=== PATIENT | male | born 1965 | race Two or more races ===

== ENCOUNTER 2018-06-04 13:26 | Outpatient (CLI) | payer OTHER | END 2018-06-04 15:39 | disposition home or self-care (01) | LOC: RAD 13:26 | DX: M25.511 Pain in right shoulder (principal); M25.531 Pain in right wrist ==

== ENCOUNTER 2018-12-10 10:42 | Outpatient (CLI) | payer OTHER | END 2018-12-10 10:49 | disposition home or self-care (01) | LOC: RAD 10:42 | DX: M25.562 Pain in left knee (principal); M25.552 Pain in left hip ==

== ENCOUNTER → 2018-12-30 | Outpatient (CLI) | payer OTHER | END | disposition home or self-care (01) | LOC: TOM 15:35 | DX: M54.42 Lumbago with sciatica, left side (principal) ==

== ENCOUNTER 2023-05-10 10:16 | Outpatient (CLI) | payer OTHER ==
[~2023-05-10 10:16] MED LIST: ACETAMINOPHEN650 M2; KETO10TA2 PO; MEDROLPACK PO; NORFLEX100MG PO
== END 2023-05-10 10:21 | disposition home or self-care (01) ==
LOC: RAD 10:16
PROVIDERS: ATTEND Internal Medicine
DX: M25.511 Pain in right shoulder (principal); M25.521 Pain in right elbow; M25.531 Pain in right wrist